=== PATIENT | male | born 1975 | race Two or more races ===

== ENCOUNTER 2018-02-16 10:50 | Emergency (ER) | payer OTHER, BC ==
[2018-02-16 11:01] VITALS: BP 138/82; PULSE 77; RESP 19; TEMP 98.5; O2SAT 96
[2018-02-16] MEDS ORDERED: Sodium Chloride 0.9% 1,000 ML IV STA (12:08)
[2018-02-16 13:09] LABS: BASO % 0.2 % (0.0-2.0); EOS % 0.5 % (0.0-4.0); HEMOGLOBIN 16.1 g/dL (12.0-18.0); LYMPH # 1.2 K/uL (1.0-4.3); LYMPH % 17.1 % (20.0-40.0); MEAN CELL VOLUME 85.8 fl (80.0-94.0); MEAN CORPUSCULAR HEMOGLOBIN 29.6 pg (27.0-31.0); MEAN CORPUSCULAR HGB CONC 34.5 g/dL (33.0-37.0); MEAN PLATELET VOLUME 10.6 fl (7.2-11.7); MONO # 0.5 K/uL (0.0-0.8); MONO % 7.9 % (0.0-10.0); NEUT % 74.3 % (50.0-75.0); NRBC % 0.1 % (0.0-0.0); RBC 5.43 Mil/uL (4.40-5.90); WHITE BLOOD COUNT 6.8 K/uL (4.8-10.8)
[2018-02-16 13:16] LABS: ALB/GLOB RATIO 1.3 (1.0-2.1); ALBUMIN 4.7 g/dL (3.5-5.0); CALCIUM 9.2 mg/dL (8.4-10.2); GFR NON-AFRICAN AMERICAN > 60
[2018-02-16 13:17] LABS: ALT/SGPT 33 U/L (21-72); AST/SGOT 43 U/L (17-59); BLOOD UREA NITROGEN 21 mg/dl (9-20)
[2018-02-16 13:27] LABS: PARTIAL THROMBOPLASTIN TIME 34.6 Seconds (25.6-37.1); PROTHROMBIN TIME 11.3 Seconds (9.8-13.1)
--- NOTE | 2018-02-16 13:34 | CT ---
Date of service: 02/16/2018 PROCEDURE: CT HEAD WITHOUT CONTRAST. HISTORY: trauma COMPARISON: None available. TECHNIQUE: Axial computed tomography images were obtained through the head/brain without intravenous contrast. Coronal and sagittal reconstructed images. Radiation dose: Total exam DLP = 820.72. MGy-cm. This CT exam was performed using one or more of the following dose reduction techniques: Automated exposure control, adjustment of the mA and/or kV according to patient size, and/or use of iterative reconstruction technique. FINDINGS: HEMORRHAGE: No intracranial hemorrhage. BRAIN: No mass effect or edema. No atrophy or chronic microvascular ischemic changes. VENTRICLES: Unremarkable. No hydrocephalus. CALVARIUM: Unremarkable. PARANASAL SINUSES: Unremarkable as visualized. No significant inflammatory changes. MASTOID AIR CELLS: Unremarkable as visualized. No inflammatory changes. OTHER FINDINGS: None. IMPRESSION: No acute intracranial abnormalities. No significant findings to account for the clinical presentation.
--- NOTE | 2018-02-16 14:02 | ED PDOC ---
HPI: Trauma/Fall - HPI Time Seen by Provider: 02/16/18 11:56 Chief Complaint (Nursing): Trauma History Per: Patient Additional Complaint(s): Pt. states earlier today at work a heavy door fell on the R side of his head and his R shoulder. Pt. states this caused him to fall down on his knees. Reports no LOC but states he did feel dizzy afterwards. Also states he felt nauseous afterwards and began to spit up (not vomit). Stats he noticed blood mixed in with his spit which has since resolved. Also c/o neck pain. Denies numbness, tingling, LOC, anticoagulant use, chest pain, SOB, previous TBI, vomiting, abdominal pain, hx of GI bleed, melena, hematochezia, BRBPR. Past Medical History Reviewed: Historical Data, Nursing Documentation, Vital Signs Vital Signs: Last Vital Signs Temp 98.5 F 02/16/18 11:00 Pulse 77 02/16/18 11:00 Resp 19 02/16/18 11:00 BP 138/82 02/16/18 11:00 Pulse Ox 96 02/16/18 11:00 - Surgical History Other surgeries: sinus surgery - Family History Family History: States: No Known Family Hx - Home Medications Home Medications: Ambulatory Orders Medication Instructions Recorded Cyclobenzaprine [Cyclobenzaprine 10 mg PO Q8 PRN #10 tab 02/16/18 HCl] Naproxen [Naprosyn] 500 mg PO BID PRN #10 tab 02/16/18 Ondansetron ODT [Zofran ODT] 4 mg PO TID #10 odt 02/16/18 - Allergies Allergies/Adverse Reactions: Allergies Allergy/AdvReac Type Severity Reaction Status Date / Time shellfish derived Allergy ANAPHYLAXIS Verified 02/16/18 11:12 Review of Systems ROS Statement: Except As Marked, All Systems Reviewed And Found Negative Gastrointestinal: Positive for: Nausea Musculoskeletal: Positive for: Neck Pain, Shoulder Pain Neurological: Positive for: Headache Physical Exam - Physical Exam Appears: Positive for: Well, Non-toxic, No Acute Distress Head Exam: Positive for: ATRAUMATIC, NORMAL INSPECTION, NORMOCEPHALIC Skin: Positive for: Normal Color, Warm. Negative for: Rash Eye Exam: Positive for: EOMI, Normal appearance, PERRL ENT: Positive for: Normal ENT Inspection, TM Is/Are (no hemotympanum b/l) Neck: Positive for: Normal, Painless ROM Cardiovascular/Chest: Positive for: Regular Rate, Rhythm, Chest Non Tender Respiratory: Positive for: CNT, Normal Breath Sounds Pulses-Radial (L): 2+ Pulses-Radial (R): 2+ Gastrointestinal/Abdominal: Positive for: Normal Exam, Soft. Negative for: Tenderness Back: Positive for: Normal Inspection. Negative for: L CVA Tenderness, R CVA Tenderness Extremity: Positive for: Other (R lateral shoulder tenderness without deformity with limited ROM secondary to pain) Neurologic/Psych: Positive for: Alert, Oriented, Gait (steady, unassisted). Negative for: Aphasia, Facial Droop - Laboratory Results Result Diagrams: 02/16/18 12:55 02/16/18 12:55 - ECG O2 Sat by Pulse Oximetry: 96 - Progress ED Course And Treament: Labs, CT head/cervical spine w/o contrast, tylenol 975mg PO, IV NS bolus x 1, zofran 4mg IV ordered. Re-evaluation Time: 14:34 (Diagnostics and imaging results d/w patient. Advised to f/u with Dr. Leigh for further evaluation. States he is feeling much better. Pt. appears to be in no distress and is in a happy mood. Requesting food. ) Condition: Re-examined, Improved Disposition - Clinical Impression Clinical Impression: Head injury, Shoulder injury, Cervical sprain - Patient ED Disposition Is Patient to be Admitted: No - Disposition Referrals: [facility] [Outside] Hugo Leigh MD [Medical Doctor] - Disposition: Routine/Home Disposition Time: 14:36 Condition: IMPROVED Additional Instructions: BENSON RODRIGUEZ, thank you for letting us take care of you today. Your provider was Zaria Shine MD and you were treated for WC; DIZZY. The emergency medical care you received today was directed at your acute symptoms. If you were prescribed any medication, please fill it and take as directed. It may take several days for your symptoms to resolve. Return to the Emergency Department if your symptoms worsen, do not improve, or if you have any other problems. Please contact your doctor or call one of the physicians/clinics you have been referred to that are listed on the Patient Visit Information form that is included in your discharge packet. Bring any paperwork you were given at discharge with you along with any medications you are taking to your follow up visit. Our treatment cannot replace ongoing medical care by a primary care provider outside of the emergency department. Thank you for allowing the [facility] team to be part of your care today. If you had an X-Ray or CT scan: A Radiologist will review the ED reading if any change in treatment is needed we will contact you. If you had a blood, urine, or wound culture: It will take several days for the results, if any change in treatment is needed we will contact you. If you had an STI test: It will take 48 hours for the results. Please call after 1 week if you have not heard back. Prescriptions: Cyclobenzaprine [Cyclobenzaprine HCl] 10 mg PO Q8 PRN #10 tab PRN Reason: Muscle Spasm Naproxen [Naprosyn] 500 mg PO BID PRN #10 tab PRN Reason: Pain Ondansetron ODT [Zofran ODT] 4 mg PO TID #10 odt Instructions: Concussion, Adult (DC), Shoulder Sprain (DC) Forms: [employer] [facility] (Persian) Print Language: GERMAN
--- NOTE | 2018-02-16 14:22 | CT ---
Date of service: 02/16/2018 PROCEDURE: CT Cervical Spine without contrast HISTORY: trauma COMPARISON: None available. TECHNIQUE: Axial computed tomography images were obtained of the cervical spine without the use of intravenous contrast. Coronal and sagittal reformatted images were created and reviewed. Radiation dose: Total exam DLP = 324.93 mGy-cm. This CT exam was performed using one or more of the following dose reduction techniques: Automated exposure control, adjustment of the mA and/or kV according to patient size, and/or use of iterative reconstruction technique. FINDINGS: VERTEBRAE: No fracture. Normal alignment. No destructive bony lesion. DISCS/SPINAL CANAL/NEURAL FORAMINA: The craniocervical junction appears intact. There is moderate disc height loss at C6-7 indicating degenerative disc disease. Endplate sclerosis accompanies this finding without osteophyte development remaining intervertebral disc heights appear normal. At C2-3, limited disc bulging is appreciate with potential tiny disc protrusion left paracentral, without significant stenosis identified. No bony central canal or neural foraminal stenosis appreciated. At C3-4, an additional limited disc bulge is appreciated without bony central canal or neural foraminal stenosis. At C4-5, no significant central canal or neural foraminal stenosis is appreciated although limited facet and uncovertebral degenerative changes borderline narrowing the left neural foramen. At C5-6, there is a limited disc bulge with mild left C6 root foraminal degenerative stenosis. No central canal or right neural foraminal bony stenosis appreciated. At C6-7 no bony central canal or neural foraminal stenosis identified as well as C7-T1. PARASPINAL SOFT TISSUES: Unremarkable. OTHER FINDINGS: None. IMPRESSION: Small multilevel disc bulges are appreciated including at C2-3, C3-4 and C5-6 without bony central canal stenosis. A tiny left paracentral protrusion may be present at C2-3 without significant stenosis. No fracture or spondylolisthesis identified. Borderline degenerative left neural foraminal stenosis C5 root foramen, mild degenerative neural foraminal stenosis left C6 root foramen.
--- NOTE | 2018-02-16 14:37 | RAD ---
Date of service: 02/16/2018 PROCEDURE: Radiographs of the Right Shoulder HISTORY: trauma COMPARISON: No prior. FINDINGS: BONES: Normal. No fracture. JOINTS: Normal. Glenohumeral and acromioclavicular joints preserved. No osteoarthritis. SOFT TISSUES: Normal. OTHER FINDINGS: None. IMPRESSION: Normal radiographs of the right shoulder.
== END 2018-02-16 14:58 | disposition home or self-care (01) ==
LOC: H.ER 10:50
DX: S09.90XA Unspecified injury of head, initial encounter (principal); S13.4XXA Sprain of ligaments of cervical spine, initial encounter; W19.XXXA Unspecified fall, initial encounter; Y92.89 Other specified places as the place of occurrence of the external cause
CPT/HCPCS: 70450; 72125; 73030; 80053; 85025; 85610; 85730; 96374; 99285; J2405; J7030